=== PATIENT | female | born 1970 | race African-American/Black ===

== ENCOUNTER 2017-06-04 09:29 | Outpatient (CLI) | payer OTHER | END 2017-06-04 19:02 | disposition home or self-care (01) | LOC: MAMMO 09:29 | DX: Z12.31 Encounter for screening mammogram for malignant neoplasm of breast (principal) | CPT/HCPCS: G0202-TC ==

== ENCOUNTER 2023-03-06 11:01 | Outpatient (CLI) | payer OTHER | END 2023-03-06 19:05 | disposition home or self-care (01) | LOC: RAD 11:01 | PROVIDERS: ATTEND Nurse Practitioner Family | DX: L60.0 Ingrowing nail (principal) ==

== ENCOUNTER 2023-03-27 15:11 | Outpatient (CLI) | payer OTHER | END 2023-03-27 17:30 | disposition home or self-care (01) | LOC: MAMMO 15:11 | PROVIDERS: ATTEND Internal Medicine | DX: Z12.31 Encounter for screening mammogram for malignant neoplasm of breast (principal) ==